=== PATIENT | male | born 1970 | race Caucasian/White ===

== ENCOUNTER 2018-04-19 17:28 | Emergency (ER) | payer OTHER ==
[~2018-04-19] VITALS: Ht 193 cm; Wt 104.3 kg
[2018-04-19] MEDS ORDERED: PROVENTIL HFA6.7 GM INH (19:43)
[2018-04-19] MEDS ORDERED: ADULT WAL-100 MG/5 M PO (19:43)
--- OUTSIDE RECORDS SUMMARY | 2018-04-19 20:04 | XMS ---
[facility]: MARISOL SINGH Security Body Liner Events No recent Security Events currently on file CRITERIA MET - [facility] CARE PROVIDERS FLORENTIN CESAR [facility] Current PHONE: Unknown GRISELDA MCFARLAND [facility] Current PHONE: [phone] MARISOL BARTON Counselor: Mental Health Current PHONE: [phone] [facility] [place] [facility] PHONE: [phone] K[facility]STAL [facility] Primary Care 08/28/2017-[facility] PHONE: [phone] MARISOL ZALDIVAR Primary Care Current PHONE: Unknown FLORENTIN CESAR Primary [facility] Current PHONE: [phone] FLORENTIN CESAR Primary Care Current PHONE: Unknown Mary has no Care Guidelines for this patient. E.D. VISIT COUNT (12 MO.) 2 Patricia Valladares M.C. 11 Geronimo Spencer M.C. 1 MARIO Hong TOTAL 14 NOTE: Visits indicate total known visits. ED/UCC VISIT TRACKING (12 MO.) 04/19/2018 17:28 MARIO Vila [place] TYPE: Emergency COMPLAINT: - FLU SYMPTOMS,COUGH 03/02/2018 20:55 Geronimo CHAKRABORTY M.C. TYPE: Emergency DIAGNOSES: - Acute upper respiratory infection, unspecified - Fever, Shaky - Fever - Shortness of Breath 10/31/2017 16:12 [facility] MYLENE Pinon TYPE: Emergency DIAGNOSES: - Insomnia, unspecified - Other somatoform disorders - Anxiety disorder, unspecified - weakness 10/30/2017 21:45 [facility] MYLENE [place] TYPE: Emergency DIAGNOSES: - Acute prostatitis - Constipation, unspecified - Constipated - Anxiety [facility]28[facility]2017 [facility] DIAGNOSES: - Chest Pain - heart palp [facility]24/2017 19[facility] DIAGNOSES: - Low back pain - Back Pain - Other chronic pain 07/07/2017 09:02 [facility] MYLENE Pin[place] TYPE: Emergency DIAGNOSES: - Anxiety disorder, unspecified - Panic Attack 06/12/2017 19:06 [facility] [place] Kath[place] TYPE: Emergency DIAGNOSES: - Altered mental status, unspecified - dental pain - Brief psychotic disorder - Psychiatric Evaluation 06/12/2017 08:14 [facility] MYLENE [place] TYPE: Emergency DIAGNOSES: - Altered Mental Status - Fever - abd pain 06/11/2017 14:24 [facility] MYLENE [place] TYPE: Emergency DIAGNOSES: - Other specified disorders of teeth and supporting structures - Dental Problem - dental pain 06/11/2017 01:50 Geronimo Mario [facility] NONA CHAKRABORTY M.C. TYPE: Emergency DIAGNOSES: - Shoulder Pain - pain in shoulder - Myalgia 05/28/2017 06:25 Geronimo Mario [facility] NONA CHAKRABORTY M.C. TYPE: Emergency DIAGNOSES: - Other specified disorders of teeth and supporting structures - Bowel obstruction - Constipation, unspecified - Abdominal Pain - Left lower quadrant pain 05/27/2017 22:02 Patricia VALLADARES [place] TYPE: Emergency DIAGNOSES: - Abdominal Pain (Re-exam) - Abdominal Pain - Left lower quadrant pain 05/27/2017 19:04 Patricia VALLADARES [place] TYPE: Emergency DIAGNOSES: - Left lower quadrant pain - Abdominal Pain - Constipation, unspecified INPATIENT VISIT TRACKING (12 MO.) No inpatient visits to display in this time frame [email or web address]
[2018-04-20] MEDS ORDERED: GUAIFEN-CODEINE10 ML PO (18:56)
== END 2018-04-19 19:30 | disposition home or self-care (01) ==
LOC: ED 17:28
DX: J20.9 Acute bronchitis, unspecified (principal); F17.200 Nicotine dependence, unspecified, uncomplicated
CPT/HCPCS: 87502; 99283

== ENCOUNTER 2018-04-20 16:21 | Emergency (ER) | payer OTHER ==
[~2018-04-20] VITALS: Ht 193 cm; Wt 104.3 kg
[~2018-04-20 16:21] MED LIST: ADULT WAL-100 MG/5 M PO; PROVENTIL HFA6.7 GM INH
--- OUTSIDE RECORDS SUMMARY | 2018-04-20 16:24 | XMS ---
PreManage Notification: MARISOL SINGH Security Hygiene Assistant Events No recent Security Events currently on file CRITERIA MET - Group Notification - PDMP - [facility] - 2 Visits in 30 Days CARE PROVIDERS FLORENTIN CESAR [facility] Current PHONE: Unknown GRISELDA MCFARLAND [facility] Current PHONE: [phone] MARISOL BARTON Counselor: Mental Health Current PHONE: [phone] [facility] PHONE: [phone] KRISTAL [facility] Primary Care 08/28/2017-[facility] PHONE: [phone] MARISOL ZALDIVAR Primary Care Current PHONE: Unknown FLORENTIN CESAR Primary Care Current PHONE: [phone] FLORENTIN CESAR Primary Care Current PHONE: Unknown Mary has no Care Guidelines for this patient. E.DMonica VISIT COUNT (12 MO.) 2 Patricia [facility] TOTAL 15 NOTE: Visits indicate total known visits. ED/UCC VISIT TRACKING (12 MO.) 04/20/2018 16:21 MARIO Vila [place] TYPE: Emergency COMPLAINT: - COUGH,ABD PAIN 04/19/2018 17:28 MARIO Vila [place] TYPE: Emergency COMPLAINT: - FLU SYMPTOMS,COUGH 03/02/2018 20:55 [facility] MYLENE Pinon TYPE: Emergency DIAGNOSES: - Acute upper respiratory infection, unspecified - Fever, Shaky - Fever - Shortness of Breath 10/31/2017 16:12 [facility] [place] Kath[place] TYPE: Emergency DIAGNOSES: - Insomnia, unspecified - Other somatoform disorders - Anxiety disorder, unspecified - weakness 10/30/2017 21:45 [facility] MYLENE [place] TYPE: Emergency DIAGNOSES: - Acute prostatitis - Constipation, unspecified - Constipated - Anxiety 08/28/2017 16:12 [facility] MYLENE [place] TYPE: Emergency DIAGNOSES: - Chest Pain - heart palp 07/24/2017 19:08 [facility] DIAGNOSES: - Low back pain - Back Pain - Other chronic pain 07/07/2017 09:02 [facility] [place] TYPE: Emergency DIAGNOSES: - Anxiety disorder, unspecified - Panic Attack 06/12/2017 19:06 [facility] [place] TYPE: Emergency DIAGNOSES: - Altered mental status, unspecified - dental pain - Brief psychotic disorder - Psychiatric Evaluation 06/12/2017 08:14 [facility] [place] TYPE: Emergency DIAGNOSES: - Altered Mental Status - Fever - abd pain 06/11/2017 14:24 Geronimo Mario [facility] NONA CHAKRABORTY M.C. TYPE: Emergency DIAGNOSES: - Other specified disorders of teeth and supporting structures - Dental Problem - dental pain 06/11/2017 01:50 Geronimo Mario [facility] NONA CHAKRABORTY M.C. TYPE: Emergency DIAGNOSES: - Shoulder Pain - pain in shoulder - Myalgia 05/28/2017 06:25 Geronimo Mario [facility] NONA CHAKRABORTY M.C. TYPE: Emergency DIAGNOSES: - Other specified disorders of teeth and supporting structures - Bowel obstruction - Constipation, unspecified - Abdominal Pain - Left lower quadrant pain 05/27/2017 22:02 Patricia CHAKRABORTY TYPE: Emergency DIAGNOSES: - Abdominal Pain (Re-exam) - Abdominal Pain - Left lower quadrant pain 05/27/2017 19:04 Patricia VALLADARES [place] TYPE: Emergency DIAGNOSES: - Left lower quadrant pain - Abdominal Pain - Constipation, unspecified INPATIENT VISIT TRACKING (12 MO.) No inpatient visits to display in this time frame [id number]
[2018-04-20] MEDS ORDERED: GUAIFEN-CODEINE10 ML PO (18:56)
== END 2018-04-20 19:04 | disposition home or self-care (01) ==
LOC: ED 16:21
DX: R05 Cough (principal); F17.200 Nicotine dependence, unspecified, uncomplicated; Z90.49 Acquired absence of other specified parts of digestive tract; Z79.899 Other long term (current) drug therapy
CPT/HCPCS: 71046; 99283-25